=== PATIENT | male | born 1985 | race Caucasian/White ===

== ENCOUNTER → 2022-01-19 | Day surgery (SDC) | payer OTHER ==
[~2022-01-19] VITALS: Ht 182.9 cm; Wt 100.7 kg
[2022-01-19 09:26] LABS: BASOPHIL 0.8 % (0-2); EOSINOPHIL 1.8 % (0-5); HCT 47.2 % (42.0-52.0); HGB 16.6 g/dl (13.2-18.0); LYMPHOCYTE 38.7 % (15-48); MCH 32.3 pg (25.0-31.0); MCHC 35.2 g/dL (32.0-36.0); MCV 91.8 fL (78.0-100.0); MONOCYTE 6.7 % (0-12); MPV 10.1 fL (6.0-9.5); NEUTROPHIL 51.7 % (41-80); NRBC 0; PLT 226 K/uL (150-400); RBC 5.14 M/uL (4.70-6.00); RDW 11.4 % (11.5-14.0); WBC 6.6 K/uL (4.0-10.5)
[2022-01-19 09:35] LABS: INR 1.05 (0.9-1.2); PROTHROMBIN TIME 13.1 SECONDS (11.8-13.4); PTT 26.9 SECONDS (24.4-34.7)
== END | disposition home or self-care (01) ==
LOC: FAS 08:40
PROVIDERS: Oral & Maxillofacial Surgery
DX: K04.7 Periapical abscess without sinus (principal); K02.9 Dental caries, unspecified; M27.2 Inflammatory conditions of jaws; F11.23 Opioid dependence with withdrawal; F17.200 Nicotine dependence, unspecified, uncomplicated
CPT/HCPCS: 41800; D7140; D7210; 36415; 85025; 85610; 85730; 87070; 87075; 87205; J1100; J1885; J2250; J2405; J2704; J7120